=== PATIENT | male | born 1960 | race African-American/Black ===

== ENCOUNTER 2023-06-02 17:57 | Inpatient (IN) | payer OTHER, SELFPAY ==
[2023-06-02] VITALS (9 sets, daily range): BP systolic 105–154; BP diastolic 68–98; BMI 29.9; BMI 29.3
[2023-06-02] MEDS: TYLENOL 1000 MG PO (12:43)
[2023-06-02 13:07] LABS: % Basophils 0.5 % (0-2); % Eosinophils 0.2 % (0-6); % Immature Granulocytes 0.3 % (0-0.5); % Lymphocytes 15.8 % (20.5-51.1); % Monocytes 8.7 % (1.7-9.3); % Neutrophils 74.5 % (42.2-75.2); Absolute Basophils 0.1 10^3/uL (0-0.2); Absolute Immature Granulocytes 0.1 10^3/uL (0-0.05); Absolute Lymphocytes 2.6 10^3/uL (1.2-3.4); Absolute Monocytes 1.4 10^3/uL (0.1-0.6); Hematocrit 47.9 % (39.0-52.0); Hemoglobin 16.7 g/dL (13.0-18.0); Mean Corp Hgb Conc. 34.9 g/dL (33.0-37.0); Mean Platelet Volume 9.1 fL (7.4-10.4); Nucleated Red Blood Cells % 0 % (-); Platelet Count 220 10^3/uL (130-400); Red Blood Cell Count 5.38 10^6/uL (4.70-6.10); Red Cell Dist. Width 13.9 % (11.5-14.5); White Blood Cell Count 16.1 10^3/uL (4.8-10.8)
[2023-06-02 13:19] LABS: ALT (SGPT) 21 U/L (0-50); AST (SGOT) 31 U/L (17-59); Alkaline Phosphatase 82 U/L (38-126); Blood Urea Nitrogen 17 mg/dl (9-20); Calcium 8.7 mg/dl (8.4-10.2); Carbon Dioxide 21 mmol/L (22-30); Chloride 105 mmol/L (98-107); Glucose 123 mg/dl (70-99); Potassium 4.6 mmol/L (3.5-5.1); Sodium 132 mmol/L (135-145); Total Bilirubin 0.8 mg/dl (0.2-1.3); Total Protein 7.7 g/dl (6.3-8.2); eGFR > 60.00
[2023-06-02 13:20] LABS: Lactic Acid 1.2 mmol/L (0.7-2.0)
[2023-06-02 13:21] LABS: COVID-19 Antigen Negative (Negative)
--- NOTE | 2023-06-02 17:00 | EDRN ---
Julián Haro PA in to see pt at this time.
--- NOTE | 2023-06-02 17:01 | ED.GENMED ---
History of Present Illness
General
Chief Complaint: Cold/Flu/URI Symptoms
Time Seen by Provider: 06/02/23 16:15
Travel History
Have you had any contact with someone who has COVID-19?: No
Do you have any symptoms of coronavirus? Fever > 100 degrees, chills, cough, shortness of breath, sore throat, loss of taste or smell, muscle aches, or headache?: No
History of Present Illness
History of Present Illness:
63-year-old male with history of interstitial lung disease presents to the emergency department for evaluation of fever and coughing for the past 3 to 4 days. Cough is productive of yellowish sputum but is on occasion dry. Denies any significant
shortness of breath. Has not taken any antipyretics today. Denies any chest pain does report upper abdominal pain associated with coughing. No ill contacts at home.
Past History
Past History
ED Past Medical History: Asthma, NIDDM and Other (PNA)
ED Past Surgical History: None
Social History
Tobacco: Non-smoker
Alcohol: None
Personal:
Living: with family
Review of Systems
Review of Systems
Allergies reviewed?: Yes
All Other Systems: ROS reviewed and negative except as documented in HPI and ROS
Phy Exam
Physical Exam
Physical Exam:
GEN: Well appearing, NAD, WDWN
Eyes: PERRLA, EOMs intact, no scleral icterus
HENT: NCAT, oral mucosa moist, no JVD, no cervical adenopathy.
Lungs: Normal respiratory effort, interstitial crackles best heard at the bases, no wheezes
Cardiac: Tachycardic, regular
Abdomen: S, NT, ND, NABS, no masses or hepatosplenomegaly
Neuro: AO x 3, no focal deficits to BUE/BLE, normal sensation throughout
MSK: No gross deformity or ecchymosis. No edema. No digital clubbing
Skin: No rashes, petechiae. Normal color, no pallor or jaundice.
Psych: Calm, cooperative, proper hygiene
Course
Orders/Labs/Results
Orders:
Orders
06/02/23 12:40
Electrocardiogram (*1) Urgent
Reason for Study: Bradycardia / Tachycardia
EKG- Treatment ONCE
06/02/23 12:41
Acetaminophen [Tylenol] 1,000 mg .ROUTE .STK-MED ONE
06/02/23 12:43
Acetaminophen [Tylenol] 1,000 mg PO NOW STA
06/02/23 12:55
COVID-19 Antigen Urgent
Source: Nasal Swab
Complete Blood Count/With Diff Urgent
Comprehensive Metabolic Panel Urgent
Lactic Acid Urgent
Blood Culture Urgent
JEREMIE Source: Blood/Venous
Specimen Description:
Influenza A+B Rapid Molecular Urgent
JEREMIE Source: Nasal Swab
Specimen Description:
06/02/23 Dinner
Regular
At Your Request: Full Participation
06/02/23 16:25
CR Chest - 2 Views Urgent
Comment:
Reason For Exam: cough, fever
06/02/23 17:00
CT Chest W/o Iv Contrast Urgent
Comment:
Reason For Exam: fever, cough, hx of ILD
Cefepime HCl [Maxipime] 1,000 mg IV NOW STA
06/02/23 17:03
Doxycycline [Vibramycin] 100 mg PO NOW STA
06/02/23 17:31
Admit/Transfer Patient As Directed
Co-Sign Provider:
Level of Care: Inpatient admission
Assign to:: Medical/Surgical
Physician / Group: melissa
Diagnosis: pneumonia
Reason for Hospitalization: pneumonia
Expected length of stay greater than two midnights?: Yes
ELOS- Estimated Length of Stay in days: 2
I certify the patient meets the requirements for IP care: Yes
06/02/23 17:32
Code Status As Directed
Resuscitation Status: Full Code
06/02/23 17:35
Respiratory Culture/Gram Stain Urgent
JEREMIE Source: Sputum
Specimen Description:
06/02/23 17:41
MethylPREDNISolone PF [Solu-Medrol Pf] 40 mg IV NOW STA
06/02/23 17:50
Procalcitonin Urgent
PCT Algorithmm Indication: Respiratory
06/02/23 17:52
Blood Culture Urgent
JEREMIE Source: Blood/Venous
Specimen Description:
06/02/23 19:44
0.9% Sodium Chloride 1000 ml [Nss] 1,000 ml IV 100 mls/hr
Acetaminophen [Tylenol] 650 mg PO Q4H PRN
Acetaminophen [Tylenol] 650 mg PO Q4HPRN PRN
Dextrose 50%-Water [Dextrose 50% Syringe] 12.5 grams IV [id number] PRN
Glucagon [GlucaGen] 1 mg IM PRN PRN
06/02/23 19:44
Activity As Directed
Activity Level: As Tolerated
Bedside Glucose Monitoring As Directed
Frequency: AC&HS
Comment: Change to q6h if pt on TPN, tube feeding or not eating
Vital Signs As Directed
Frequency: Per unit guidelines
DX Deep Vein Thrombosis Video Routine
06/02/23 19:57
Guaifenesin Solution [Robitussin] 200 mg PO Q4H PRN
06/02/23 20:00
Azithromycin 500 mg/250 ml [Zithromax Infusion] 500 mg in 250 ml IV Q24H
Heparin 5,000 units SC Q12
Ipratropium/Albuterol Sulfate [Duoneb] 3 ml INH R QID
METFORMIN HCl [Glucophage] 500 mg PO BID
06/03/23 06:00
Complete Blood Count/With Diff IN AM
Comprehensive Metabolic Panel IN AM
Glycohemoglobin (HgbA1c) IN AM
Dexamethasone Sod Phosphate [Decadron] 4 mg IV Q12H
06/03/23 07:30
Insulin Aspart Corrective Low [Novolog Flexpen-Low Resistance] See Protocol SC AC
06/03/23 08:00
Ascorbic Acid [Vitamin C] 500 mg PO DAILY
CefTRIAXone [Rocephin] 1,000 mg IV Q24H
Abnormal Lab Results
06/02/23 06/02/23
12:55 17:50
WBC 16.1 H 10^3/uL
(4.8-10.8)
Abs Immat Gran (auto) 0.1 H 10^3/uL
(0-0.05)
Absolute Neuts (auto) 12.0 H 10^3/uL
(1.4-6.5)
Absolute Monos (auto) 1.4 H 10^3/uL
(0.1-0.6)
Lymphocytes % 15.8 L %
(20.5-51.1)
Sodium 132 L mmol/L
(135-145)
Carbon Dioxide 21 L mmol/L
(22-30)
Glucose 123 H mg/dl
(70-99)
Procalcitonin 0.28 H ng/ml
(0.0-0.25)
06/02/23 12:55
06/02/23 12:55
Vital Signs
Initial and Last Documented VS:
Initial Vital Signs
Temp Pulse Resp BP Pulse Ox
102.1 F H 130 16 140/98 95
06/02/23 12:37 06/02/23 12:37 06/02/23 12:37 06/02/23 12:37 06/02/23 12:37
Last Documented Vital Signs
Temp Pulse Resp BP Pulse Ox
100.3 F 115 18 127/77 94
06/02/23 20:15 06/02/23 20:15 06/02/23 20:15 06/02/23 20:15 06/02/23 20:15
MDM/Problems Addressed
MDM/Problems Addressed:
As he is tachycardic, coupled with new PNA superimposed on ILD, he is high risk for complications. Leukocytosis and fever meet sepsis criteria. Will admit for IV abx
*Critical Care Note
Total Time (30-74mins, 75-104mins- exclusive of procedures): Not Applicable
ED Attending Note
-
Portions of this chart may have been created with voice recognition software.� Occasional wrong word or��sound alike� substitutions may have occurred due to the inherent limitations of voice recognition software.
Discharge Plan
Departure
Patient Disposition: Admit
Date of Disposition: 06/02/23
Time of Disposition: 17:15
Presentation/result/management discussed w/ accepting MD/DO: Hospitalist
Discharge Problem:
Community acquired pneumonia, Interstitial lung disease
Interventions
Interventions:
*Risk Screen - Suicide Last Done: 06/02/23 16:32
*General Assessment Last Done: 06/02/23 16:32
*Neglect/Abuse Screening Last Done: 06/02/23 16:32
ED- Fall Risk Assessment Last Done: 06/02/23 16:32
*ED COVID-19 Vaccine History Last Done: 06/02/23 12:37
*Nursing Disposition Last Done: 06/02/23 19:57
ED- Pulmonary Assessment Last Done: 06/02/23 16:35
Discharge Date and Time
Discharge Date/Time: 06/02/23 19:58
--- NOTE | 2023-06-02 17:39 | HPS.HSE ---
Family Physician
-
Family Physician: Matheus Ambrocio
Chief Complaint
-
cough, fever
History of Present Illness
63-year-old male with past medical history of interstitial lung disease not on home oxygen, diabetes presenting with fever and cough for the past 3 days. Cough is productive of yellow sputum and occasionally dry. He denies any significant
shortness of breath. Denies any chest pain but does have some upper abdominal pain associated with coughing which is improved. He denies any sore throat. He also had pain across his lower back which started 3 days ago worse with movement. His
grandson had allergies.
Denies smoking or alcohol.
Medical History
Past Medical History
Past Medical History: Reports Other ( interstitial lung disease not on home oxygen, diabetes)
Past Surgical History: Reports None
Social History
Tobacco: Non-smoker
Alcohol: None
Drug: None
Family History
Family History: Not pertinent
Allergies / Home Medications
Allergies reflects when Allergies were last updated in [employer].
Home Medications with original date entered in [employer]
Allergy/Medication List:
Allergies
Allergy/AdvReac Type Severity Reaction Status Date / Time
No Known Allergies Allergy Verified 06/02/23 12:39
Home Medications
acetaminophen 325 mg tablet (Tylenol) 650 mg PO Q4H PRN mild pain 06/02/23
ascorbic acid (vitamin C) 500 mg tablet (Vitamin C) 500 mg PO DAILY 06/02/23
guaifenesin 200 mg/5 mL oral liquid 200 mg PO Q4H PRN cough 06/02/23
metformin 500 mg tablet 500 mg PO BID 06/02/23
Review of Systems
-
History Source: Patient
A 12 point ROS was completed and negative except as noted: Yes
Constitutional: Reports No Symptoms
EENT: Reports No Symptoms
Respiratory: Reports See HPI
Cardiac: Reports No Symptoms
Abdomen/GI: Reports No Symptoms
: Reports No Symptoms
Musculoskeletal: Reports No Symptoms
Skin: Reports No Symptoms
Neurological: Reports No Symptoms
Endocrine: Reports No Symptoms
Hematologic/Lymphatic: Reports No Symptoms
Psych: Reports No Symptoms
Physical Exam
Vital Signs
Vital Signs
Temp Pulse Resp BP Pulse Ox
102.1 F H 111 37 142/72 92
06/02/23 12:37 06/02/23 17:00 06/02/23 17:00 06/02/23 17:00 06/02/23 17:00
Physical Exam
General: Well Developed, Well Nourished and No Apparent Distress
HEENT: NormoCephalic, Moist mucous membranes and Atraumatic
Respiratory: Wheezes and Rales
Cardiac: S1/S2 and Regular Rhythm; No Murmur or Rub
GI: Soft, Non Tender, Non Distended and Normal Bowel Sounds; No Organomegaly
Rectal: Deferred by Provider
Musculoskeletal: No Clubbing, No Cyanosis and No Edema
Skin: No Rash
Neuro: Nonfocal/grossly intact
Laboratory Results
-
06/02/23 12:55
06/02/23 12:55
Laboratory Results
Lactic Acid 1.2 mmol/L (0.7-2.0) 06/02/23 12:55
Total Bilirubin 0.8 mg/dl (0.2-1.3) 06/02/23 12:55
AST 31 U/L (17-59) 06/02/23 12:55
ALT 21 U/L (0-50) 06/02/23 12:55
Alkaline Phosphatase 82 U/L (38-126) 06/02/23 12:55
Data Reviewed
-
Lab Data: Labs Reviewed by me
Old Records: Reviewed
Impression/Plan
-
IMPRESSION:
PLAN:
# Sepsis (fever, leukocytosis) secondary to community-acquired pneumonia
# History of interstitial lung disease
-Chest x-ray shows slight increase in opacity left lung base superimposed on severe tissue fibrosis consistent with usual interstitial pneumonitis pattern
-COVID-negative, influenza negative
-CT chest pending
-Check sputum culture
-Check blood cultures
-IV fluids
-Ceftriaxone/azithromycin
-Dexamethasone 4q12
-DuoNebs every 6 hours
-Mucinex
# Lower back pain likely muscle strain secondary to COVID
-Tylenol
# Abdominal pain likely secondary to COVID
-Now resolved
Type 2 diabetes
-Continue metformin
-Insulin sliding scale
Full code
DVT prophylaxis�heparin
Regular diet
[2023-06-02] MEDS: SOLU-MEDROL PF 40 MG IV (17:56)
[2023-06-02] MEDS: VIBRAMYCIN 100 MG PO (17:57)
[2023-06-02] MEDS: MAXIPIME 1000 MG IV (17:57)
--- NOTE | 2023-06-02 18:16 | EDRN ---
Pt voided in BR at this time.
[2023-06-02 18:25] LABS: Procalcitonin 0.28 ng/ml (0.0-0.25)
--- NOTE | 2023-06-02 19:07 | EDRN ---
Pt placed on oxygen at 2lpm for low POX of 88-92% on room air and 94% on oxygen at 2lpm via NC. Dr. Ramires was TT about placing pt on oxygen.
[2023-06-02] MEDS: DUONEB 3 ML INH (20:03)
[2023-06-02] MEDS: NSS 1000 IV (20:44)
[2023-06-02] MEDS: HEPARIN 5000 UNITS SC (20:44)
[2023-06-02] MEDS: GLUCOPHAGE 500 MG PO (20:44)
[2023-06-02] MEDS: TYLENOL 650 MG PO (20:44)
--- NOTE | 2023-06-02 20:51 | PTCARENOTE ---
pt arrived from ed, walked in on 2 L NC, VSS, tele placed, aaox3, see MAR and assessment for further details. call mcallister within reach.
[2023-06-02] MEDS: ZITHROMAX INFUSION 250 IV (21:28)
[2023-06-02 21:35] LABS: Glucose - Point of Care 137 mg/dl (70-99)
[2023-06-03] MEDS: DECADRON 4 MG IV ×2 (05:12→17:57)
[2023-06-03 06:05] LABS: % Basophils 0.2 % (0-2); % Immature Granulocytes 0.3 % (0-0.5); % Lymphocytes 11.8 % (20.5-51.1); % Neutrophils 83.7 % (42.2-75.2); Absolute Immature Granulocytes 0.1 10^3/uL (0-0.05); Absolute Lymphocytes 1.7 10^3/uL (1.2-3.4); Absolute Monocytes 0.6 10^3/uL (0.1-0.6); Absolute Neutrophils 12.2 10^3/uL (1.4-6.5); Hematocrit 47.2 % (39.0-52.0); Hemoglobin 16.1 g/dL (13.0-18.0); Mean Corp Hgb Conc. 34.1 g/dL (33.0-37.0); Mean Corpuscular Volume 90.9 fL (80.0-94.0); Mean Platelet Volume 9.8 fL (7.4-10.4); Nucleated Red Blood Cells % 0 % (-); Platelet Count 226 10^3/uL (130-400); Red Blood Cell Count 5.19 10^6/uL (4.70-6.10); Red Cell Dist. Width 13.7 % (11.5-14.5); White Blood Cell Count 14.6 10^3/uL (4.8-10.8)
[2023-06-03 06:32] LABS: ALT (SGPT) 18 U/L (0-50); AST (SGOT) 26 U/L (17-59); Albumin 3.3 g/dl (3.5-5.0); Alkaline Phosphatase 79 U/L (38-126); Blood Urea Nitrogen 16 mg/dl (9-20); Calcium 8.5 mg/dl (8.4-10.2); Carbon Dioxide 24 mmol/L (22-30); Chloride 107 mmol/L (98-107); Estimated Creatinine Clearance 112 ml/min; Glucose 135 mg/dl (70-99); Potassium 4.5 mmol/L (3.5-5.1); Sodium 134 mmol/L (135-145); Total Bilirubin 0.8 mg/dl (0.2-1.3); Total Protein 6.8 g/dl (6.3-8.2); eGFR > 60.00
[2023-06-03 07:00] VITALS: BP 131/89
[2023-06-03] MEDS: DUONEB 3 ML INH ×4 (07:11→20:01)
[2023-06-03 07:22] LABS: Hepatitis C Antibody Negative (Negative)
[2023-06-03] MEDS: NSS 1000 IV ×2 (08:09→17:56)
[2023-06-03 08:45] LABS: Glycohemoglobin (HgbA1c) 6.2 % (4.0-5.6)
[2023-06-03] MEDS: GLUCOPHAGE 500 MG PO ×2 (09:07→17:57)
[2023-06-03] MEDS: VITAMIN C 500 MG PO (09:07)
[2023-06-03] MEDS: NOVOLOG FLEXPEN-LOW RESISTANCE SC ×2 (09:07→16:34)
[2023-06-03] MEDS: ROCEPHIN 1000 MG IV (09:07)
[2023-06-03] MEDS: STERILE WATER FOR INJECTION 10 ML IV (09:08)
[2023-06-03] MEDS: HEPARIN 5000 UNITS SC ×2 (09:08→21:38)
--- NOTE | 2023-06-03 09:09 | W.PN.HOSP.TC ---
Today's Communication/Plan
-
Continue present course of IV steroids
IV antibiotics
Oxygen titrated to need and try and wean
DuoNebs every 6 with expectorant
Encourage secretions management with incentive spirometry and Acapella
Assessment / Plan
Assessment / Plan
63-year-old male with past medical history of interstitial lung disease not on home oxygen, diabetes presenting with fever and cough for the past 3 days.� Cough is productive of yellow sputum and occasionally dry.� He denies any significant
shortness of breath.� Denies any chest pain but does have some upper abdominal pain associated with coughing which is improved.� He denies any sore throat.� He also had pain across his lower back which started 3 days ago worse with movement.� His
grandson had allergies. Similar outbreak diagnosed with pulmonary fibrosis back in 2021 treated with IV steroids and antibiotics with improvement. He does not follow with pulmonary due to cost concerns.
Denies smoking or alcohol.
# Sepsis (fever, leukocytosis) secondary to community-acquired pneumonia
# History of interstitial lung disease
-Chest x-ray shows slight increase in opacity left lung base superimposed on severe tissue fibrosis consistent with usual interstitial pneumonitis pattern
-COVID-negative, influenza negative
-CT chest showed possible progression and honeycombing and bronchiectasis left lower lobe and lingula with possible superimposed pneumonia
-Check sputum culture
-Check blood cultures
-IV fluids
-Ceftriaxone/azithromycin
-Dexamethasone 4q12 continue for another 24 hours
-DuoNebs every 6 hours
-Mucinex
# Lower back pain likely muscle strain secondary to COVID
-Tylenol
# Abdominal pain likely secondary to COVID
-Now resolved
Type 2 diabetes
-Continue metformin
-Insulin sliding scale
Full code
DVT prophylaxis�heparin
Regular diet
Anticipated Discharge: 24 - 48 hours
Subjective/Interval History
-
Date of Service: June 03, 2023
states that he is feeling somewhat better and breathing easier he is not on oxygen at home he is on 2 L here since arrival.
Objective Data
-
Labs:
Laboratory Results
06/03/23
05:13
WBC 14.6 H
Hgb 16.1
Hct 47.2
Plt Count 226
Sodium 134 L
Potassium 4.5
Chloride 107
Carbon Dioxide 24
BUN 16
Creatinine 0.6 L
Glucose 135 H
Calcium 8.5
Total Bilirubin 0.8
AST 26
ALT 18
Alkaline Phosphatase 79
Vital Signs:
Vital Signs
Temp Pulse Resp BP Pulse Ox
97.4 F 95 16 131/89 98
06/03/23 07:00 06/03/23 07:15 06/03/23 07:15 06/03/23 07:00 06/03/23 07:15
Review of Systems
-
History Source: Patient
Constitutional: Reports No Symptoms; Denies Fever
EENT: Reports No Symptoms Reported
Respiratory: Reports Cough and Trouble Breathing
Physical Exam
-
General: Well Developed
HEENT: Normocephalic
Respiratory: Rales and Crackles
Cardiac: Regular Rhythm
GI: Soft, Nontender, Nondistended and Normal Bowel Sounds
Neuro: Awake and Alert
Psych: Calm
Data Reviewed
-
Total Time Spent with Patient (in minutes): 56
CT Scan: Report Reviewed by me (Significant honeycombing that may have progressed from last study especially in the left lower lobe/with bronchiectasis involving the lingula and left lower lobe)
Labs: Labs Reviewed by me
[2023-06-03] MEDS: GLUCOPHAGE PO (11:38)
[2023-06-03 12:49] LABS: Glucose - Point of Care 179 mg/dl (70-99)
[2023-06-03 15:00] VITALS: BP 132/81
[2023-06-03 16:52] LABS: Glucose - Point of Care 198 mg/dl (70-99)
--- NOTE | 2023-06-03 16:53 | CM ---
Alert awake oriented patient who lives with his Dewey who lives in a 2 story home with 2 step to enter and 10 steps to bed and bathroom. He is independent in driving and in all activities of daily living.He was offered VN he declined
need.Pt has no insurance . [facility]. Pt uses Mireya Pastrana as PCP.[facility].
No VN hx / No SNF history
Pharmacy [facility]
PCP DR Cristóbal Pastrana
PLAN Home declined VN
[2023-06-03] MEDS: NOVOLOG FLEXPEN-LOW RESISTANCE 1 UNITS SC (17:59)
[2023-06-03] MEDS: ZITHROMAX INFUSION 250 IV (21:38)
[2023-06-03 22:18] LABS: Glucose - Point of Care 175 mg/dl (70-99)
[2023-06-03 23:00] VITALS: BP 134/84
[2023-06-04] MEDS: NSS 1000 IV (03:29)
[2023-06-04] MEDS: DECADRON 4 MG IV (05:30)
[2023-06-04 07:00] VITALS: BP 130/87
[2023-06-04] MEDS: DUONEB 3 ML INH ×4 (07:36→20:45)
[2023-06-04] MEDS: STERILE WATER FOR INJECTION 10 ML IV (08:04)
[2023-06-04] MEDS: ROCEPHIN 1000 MG IV (08:04)
[2023-06-04] MEDS: GLUCOPHAGE 500 MG PO ×2 (08:04→17:24)
[2023-06-04] MEDS: HEPARIN 5000 UNITS SC ×2 (08:05→21:52)
[2023-06-04] MEDS: VITAMIN C 500 MG PO (08:05)
[2023-06-04 08:11] LABS: Hematocrit 42.7 % (39.0-52.0); Hemoglobin 14.6 g/dL (13.0-18.0); Mean Corp Hgb Conc. 34.2 g/dL (33.0-37.0); Mean Corpuscular Hgb 30.8 pg (27.0-31.0); Mean Corpuscular Volume 90.1 fL (80.0-94.0); Mean Platelet Volume 9.9 fL (7.4-10.4); Platelet Count 251 10^3/uL (130-400); Red Blood Cell Count 4.74 10^6/uL (4.70-6.10); Red Cell Dist. Width 13.7 % (11.5-14.5)
[2023-06-04 08:21] LABS: Glucose - Point of Care 111 mg/dl (70-99)
[2023-06-04] MEDS: NOVOLOG FLEXPEN-LOW RESISTANCE SC (08:22)
[2023-06-04 08:35] LABS: Blood Urea Nitrogen 15 mg/dl (9-20); Calcium 8.4 mg/dl (8.4-10.2); Carbon Dioxide 23 mmol/L (22-30); Chloride 106 mmol/L (98-107); Estimated Creatinine Clearance 112 ml/min; Glucose 119 mg/dl (70-99); Potassium 4.2 mmol/L (3.5-5.1); Sodium 136 mmol/L (135-145); eGFR > 60.00
--- NOTE | 2023-06-04 10:13 | W.PN.HOSP.TC ---
Today's Communication/Plan
-
Transition to oral prednisone today
Continue course of antibiotics
Proposed discharge for tomorrow
Now off oxygen
Assessment / Plan
Assessment / Plan
63-year-old male with past medical history of interstitial lung disease not on home oxygen, diabetes presenting with fever and cough for the past 3 days.� Cough is productive of yellow sputum and occasionally dry.� He denies any significant
shortness of breath.� Denies any chest pain but does have some upper abdominal pain associated with coughing which is improved.� He denies any sore throat.� He also had pain across his lower back which started 3 days ago worse with movement.� His
grandson had allergies. Similar outbreak diagnosed with pulmonary fibrosis back in 2021 treated with IV steroids and antibiotics with improvement. He does not follow with pulmonary due to cost concerns.
Denies smoking or alcohol.
# Sepsis (fever, leukocytosis) secondary to community-acquired pneumonia
# History of interstitial lung disease
-Chest x-ray shows slight increase in opacity left lung base superimposed on severe tissue fibrosis consistent with usual interstitial pneumonitis pattern
-COVID-negative, influenza negative
-CT chest showed possible progression and honeycombing and bronchiectasis left lower lobe and lingula with possible superimposed pneumonia
-Check sputum culture
-Check blood cultures
-IV fluids
-Ceftriaxone/azithromycin
-Dexamethasone 4q12 continue for another 24 hours/transition to oral prednisone today
-DuoNebs every 6 hours
-Mucinex
# Lower back pain likely muscle strain secondary to COVID
-Tylenol
# Abdominal pain likely secondary to COVID
-Now resolved
Type 2 diabetes
-Continue metformin
-Insulin sliding scale
Full code
DVT prophylaxis�heparin
Regular diet
Anticipated Discharge: Within 24 hours
Subjective/Interval History
-
Date of Service: June 04, 2023
Patient breathing significantly better now off oxygen less cough less congestion
Objective Data
-
Labs:
Laboratory Results
06/04/23
06:32
WBC 15.0 H
Hgb 14.6
Hct 42.7
Plt Count 251
Sodium 136
Potassium 4.2
Chloride 106
Carbon Dioxide 23
BUN 15
Creatinine 0.5 L
Glucose 119 H
Calcium 8.4
Vital Signs:
Vital Signs
Temp Pulse Resp BP Pulse Ox
98.2 F 102 18 130/87 96
06/04/23 07:00 06/04/23 07:39 06/04/23 07:39 06/04/23 07:00 06/04/23 07:39
I&O
06/03/23 06/04/23 06/05/23
06:59 06:59 07:59
Intake Total 1950 / 1949
Output Total 2099
Balance -150 / -150
Review of Systems
-
History Source: Patient
Constitutional: Reports No Symptoms
EENT: Reports No Symptoms Reported
Respiratory: Reports Cough
Abdomen/GI: Reports No Symptoms
Physical Exam
-
General: Well Developed
HEENT: Normocephalic
Respiratory: Crackles (Left more than right)
Cardiac: Regular Rhythm
GI: Soft and Nontender
Skin: Warm
Neuro: Awake, Alert and Oriented
Psych: Calm
Data Reviewed
-
Total Time Spent with Patient (in minutes): 45
Diagnostic Radiology: Report Reviewed by me
Labs: Labs Reviewed by me (Persisting leukocytosis presently in relation to steroid)
[2023-06-04 12:23] LABS: Glucose - Point of Care 162 mg/dl (70-99)
[2023-06-04] MEDS: NOVOLOG FLEXPEN-LOW RESISTANCE 1 UNITS SC ×2 (12:27→17:23)
[2023-06-04] MEDS: DELTASONE 40 MG PO (12:28)
[2023-06-04 15:00] VITALS: BP 135/85
[2023-06-04 16:48] LABS: Glucose - Point of Care 177 mg/dl (70-99)
[2023-06-04] MEDS: ROBITUSSIN 200 MG PO (17:28)
[2023-06-04] MEDS: ZITHROMAX INFUSION 250 IV (21:52)
[2023-06-04 21:56] LABS: Glucose - Point of Care 178 mg/dl (70-99)
[2023-06-04 23:00] VITALS: BP 115/65
[2023-06-05 07:00] VITALS: BP 132/91
[2023-06-05] MEDS: DUONEB 3 ML INH (08:06)
[2023-06-05] MEDS: ROCEPHIN 1000 MG IV (08:09)
[2023-06-05] MEDS: DELTASONE 40 MG PO (08:09)
[2023-06-05] MEDS: GLUCOPHAGE 500 MG PO (08:10)
[2023-06-05] MEDS: STERILE WATER FOR INJECTION 10 ML IV (08:10)
[2023-06-05] MEDS: HEPARIN 5000 UNITS SC (08:10)
[2023-06-05] MEDS: NOVOLOG FLEXPEN-LOW RESISTANCE SC (08:20)
[2023-06-05 08:21] LABS: Glucose - Point of Care 86 mg/dl (70-99)
--- NOTE | 2023-06-05 08:30 | W.DS.TRANS ---
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
-
Discharge Instructions:
Discharge Diagnosis/Procedures Sepsis secondary to community-acquired pneumonia
Interstitial pulm fibrosis
Diet As tolerated,Diabetic, Carb Controlled
Activity No restrictions
Driving Restrictions As prior to admission
Instructions:
Stand-Alone Forms:
Changes to Home Medications: Yes
Discharge Medications:
DC Medications w/original date entered in [employer]
acetaminophen 325 mg tablet (Tylenol) 650 mg PO Q4H PRN mild pain 06/02/23
ascorbic acid (vitamin C) 500 mg tablet (Vitamin C) 500 mg PO DAILY Supplement 06/02/23
guaifenesin 200 mg/5 mL oral liquid 200 mg PO Q4H PRN cough 06/02/23
metformin 500 mg tablet 500 mg PO BID@0800,1700 Diabetes 06/02/23
azithromycin 500 mg tablet (Zithromax) 500 mg PO DAILY 5 days #5 tabs 06/05/23
cefdinir 300 mg capsule 300 mg PO BID #14 caps 06/05/23
prednisone 10 mg tablet See Rx Instructions .Route .COMPLEX Anti-inflammatory #30 tabs 06/05/23
Home Medication Changes
azithromycin 500 mg tablet (Zithromax) 500 mg PO DAILY 5 days #5 tabs 06/05/23
cefdinir 300 mg capsule 300 mg PO BID #14 caps 06/05/23
prednisone 10 mg tablet See Rx Instructions .Route .COMPLEX Anti-inflammatory #30 tabs 06/05/23
Pending Results: No
Total time spent discharging patient (in min): 38
[2023-06-05] MEDS: VITAMIN C 500 MG PO (08:39)
--- NOTE | 2023-06-05 10:00 | CM ---
Plan: discharge to home; no needs; will transport home
--- NOTE | 2023-06-05 10:36 | W.DCSUMMARY ---
Discharge Summary
Discharge Data
Date of Admission: 06/02/23
Date of Discharge: 06/05/23
Total time spent discharging patient (in min): 40
-
Pending Results: No
Hospital Course
This is a 63-year-old male with a known past medical history of interstitial lung disease not on home oxygen therapy and also a diabetic presented with a febrile course and cough for the last 3 days prior to presentation. Clinical
presentation at the time of ED evaluation was consistent with underlying sepsis with fever and leukocytosis and secondary to perceived community-acquired pneumonia treated with IV steroids and antibiotic course of ceftriaxone and azithromycin. He
tested COVID-negative and influenza negative.
He responded well to a steroid taper after 24 hours he was also continued on DuoNebs and expectorant therapy. His type 2 diabetes did not result in significant hyperglycemia from steroid management
CT of the chest showed possible progression and honeycombing of the left lower lobe with bronchiectasis in the left lower lobe and lingula with possible superimposed pneumonia.
It was again suggested to him that he should seek pulmonary follow-up as an outpatient but states he cannot afford this
At this point in time the patient is stable for discharge on a steroid taper of prednisone as directed and he will be given a prescription for cefdinir for the next week along with Zithromax for next 5 days.
Discharge Plan
-
Patient Disposition: Home (Routine Discharge)
Discharge Diagnosis/Procedures: Sepsis secondary to community-acquired pneumonia
Interstitial pulm fibrosis
Diet: As tolerated and Diabetic, Carb Controlled
Activity: No restrictions
Driving Restrictions: As prior to admission
Referrals:
Matheus Ambrocio MD [Family Provider] - in less than 1 week
Prescriptions:
New
azithromycin [Zithromax] 500 mg tablet
500 mg PO DAILY 5 Days Qty: 5 0RF
cefdinir 300 mg capsule
300 mg PO BID Qty: 14 0RF
prednisone 10 mg Tablet
See Rx Instructions .ROUTE .COMPLEX Qty: 30 0RF
Rx Instructions:
Take By Mouth:
40 mg daily x3 days, 30 mg daily x3 days,
20 mg daily x3 days, 10 mg daily x3 days.
Continued
metformin 500 mg Tablet
500 mg PO BID@0800,1700
acetaminophen [Tylenol] 325 mg Tablet
650 mg PO Q4H PRN (Reason: mild pain)
ascorbic acid (vitamin C) [Vitamin C] 500 mg Tablet
500 mg PO DAILY
guaifenesin 200 mg/5 mL Liquid
200 mg PO Q4H PRN (Reason: cough)
Discharge Orders:
Discharge Patient (As Directed); Ordered 06/05/23
Ordered By: Hardik Diamond
--- NOTE | 2023-06-05 11:12 | PTCARENOTE ---
Discussed discharge information with Pt and at bedside with second RN that speak Barb[place] fluently. IV access removed. Belongings from room taken with Pt. Transport wheeled Pt to exit. to drive Pt home.
== END 2023-06-05 11:04 | disposition home or self-care (01) | DRG 871 ==
LOC: 3 WEST ACU 17:57
PROVIDERS: Emergency Medicine; Physician Assistant; ADMITTING PHYSICIAN Hospitalist; ATTENDING PHYSICIAN Internal Medicine; EMERGENCY PHYSICIAN Student in an Organized Health Care Education/Training Program; FAMILY PHYSICIAN Family Medicine
DX: A41.89 Other specified sepsis (principal); J18.9 Pneumonia, unspecified organism; J84.10 Pulmonary fibrosis, unspecified; E11.9 Type 2 diabetes mellitus without complications; Z11.52 Encounter for screening for COVID-19
CPT/HCPCS: 71046; 71250; 80048; 80053; 82962; 83036; 83605; 84145; 85025; 85027; 86803; 87040; 87502; 87811; 93005; 94640; 99285

== ENCOUNTER 2023-11-02 12:04 | Emergency (ER) | payer SELFPAY ==
[2023-11-02 12:05] VITALS: BP 150/93
[2023-11-02 12:42] LABS: % Basophils 0.6 % (0-2); % Eosinophils 2.9 % (0-6); % Immature Granulocytes 0.4 % (0-0.5); % Lymphocytes 25.5 % (20.5-51.1); % Monocytes 12.7 % (1.7-9.3); % Neutrophils 57.9 % (42.2-75.2); Absolute Basophils 0.1 10^3/uL (0-0.2); Absolute Eosinophils 0.3 10^3/uL (0-0.7); Absolute Immature Granulocytes 0.1 10^3/uL (0-0.05); Absolute Lymphocytes 2.9 10^3/uL (1.2-3.4); Absolute Monocytes 1.5 10^3/uL (0.1-0.6); Absolute Neutrophils 6.7 10^3/uL (1.4-6.5); Hematocrit 45.9 % (39.0-52.0); Hemoglobin 16.3 g/dL (13.0-18.0); Mean Corp Hgb Conc. 35.5 g/dL (33.0-37.0); Mean Corpuscular Hgb 31.2 pg (27.0-31.0); Mean Corpuscular Volume 87.8 fL (80.0-94.0); Mean Platelet Volume 9.8 fL (7.4-10.4); Nucleated Red Blood Cells % 0 % (-); Platelet Count 239 10^3/uL (130-400); Red Blood Cell Count 5.23 10^6/uL (4.70-6.10); Red Cell Dist. Width 14.3 % (11.5-14.5); White Blood Cell Count 11.5 10^3/uL (4.8-10.8)
[2023-11-02 13:01] LABS: COVID-19 Antigen Negative (Negative)
[2023-11-02 13:12] LABS: ALT (SGPT) 23 U/L (0-50); AST (SGOT) 31 U/L (17-59); Alkaline Phosphatase 75 U/L (38-126); Blood Urea Nitrogen 17 mg/dl (9-20); Calcium 9.3 mg/dl (8.4-10.2); Carbon Dioxide 23 mmol/L (22-30); Chloride 104 mmol/L (98-107); Glucose 93 mg/dl (70-99); Potassium 4.5 mmol/L (3.5-5.1); Sodium 134 mmol/L (135-145); Total Bilirubin 0.7 mg/dl (0.2-1.3); Total Protein 7.2 g/dl (6.3-8.2); eGFR > 60.00
[2023-11-02 13:21] LABS: Troponin I < 0.012 ng/ml
--- NOTE | 2023-11-02 13:41 | ED.GENMED ---
History of Present Illness
General
Chief Complaint: Breathing Problem
Source: patient
Exam Limitations: none
Time Seen by Provider: 11/02/23 12:32
Nursing documentation reviewed up to this point in time: agreed with
History of Present Illness
History of Present Illness:
pt is a 63 y/o M with h/o NIDDM, asthma
here with cough x 3 weeks
fever onset last night, took tylenol but nothing today
has had some back pain with cough
sometimes cough is productive of sputum, which is clear
he has been using his inhaler but not really having relief of symptoms
felt more short of breath last night with mroe back pain so that prompted his visit today
pt is not chronically on steroids
uninsured
no follow up
never saw pulm after admissino in 05/2023 for pna and new dx of intersitital lung diease
Past History
Past History
ED Past Medical History: Asthma, NIDDM and Other (PNA)
ED Past Surgical History: None
Social History
Tobacco: Non-smoker
Alcohol: None
Personal:
Living: with family
Review of Systems
Review of Systems
Allergies reviewed?: Yes
All Other Systems: Not applicable
Phy Exam
Physical Exam
Physical Exam:
GENERAL: Alert , in no apparent distress
EYE: pupils equal and reactive
NECK: Supple
ENT: o/p clr, mmm.
CARDIAC: Regular rate and rhythm .
LUNGS: wheezing end exp, slightly diminished throughuot, minimally tachypneic, speaking full sentences, cough
ABDOMEN: Soft, without focal tenderness, no r/g, no cvat, normal bowel sounds
NEUROLOGICAL: Alert and oriented, no focal neuro deficits
SKIN: Warm and dry, skin intact.
MUSCULOSKELETAL: No edema, well perfused. neg yonis's sign
PSYCH: Normal and appropriate interaction.
Scores
Heart Failure Risk
Heart Failure Risk Score: Not Applicable
Course
Orders/Labs/Results
Orders:
Orders
11/02/23 12:08
Electrocardiogram (*1) Urgent
Reason for Study: Shortness of Breath
EKG- Treatment ONCE
Chest [CR Chest - 2 Views ] Urgent
Comment:
Reason For Exam: SOB
11/02/23 12:15
COVID-19 Antigen Urgent
Source: Nasal Swab
Complete Blood Count/With Diff Urgent
Comprehensive Metabolic Panel Urgent
NT-proBNP Urgent
Comment: ADD ON
Troponin I Urgent
11/02/23 13:13
Ipratropium/Albuterol Sulfate [Duoneb] 3 ml INH R NOW ONE
MethylPREDNISolone PF [Solu-Medrol Pf] 60 mg IV NOW STA
11/02/23 13:18
Add On- LAB Urgent
Tests Added?: bnp
11/02/23 15:00
Ipratropium/Albuterol Sulfate [Duoneb] 3 ml INH R NOW ONE
11/02/23 15:52
D-Dimer Urgent
11/02/23 15:53
Amoxicillin 875 mg/Clav 125 mg [Augmentin 875 mg/125 mg] 1 tablet PO NOW STA
Azithromycin [Zithromax] 500 mg PO NOW STA
Abnormal Lab Results
11/02/23 11/02/23
12:15 16:53
WBC 11.5 H 10^3/uL
(4.8-10.8)
MCH 31.2 H pg
(27.0-31.0)
Abs Immat Gran (auto) 0.1 H 10^3/uL
(0-0.05)
Absolute Neuts (auto) 6.7 H 10^3/uL
(1.4-6.5)
Absolute Monos (auto) 1.5 H 10^3/uL
(0.1-0.6)
Monocytes % 12.7 H %
(1.7-9.3)
Sodium 134 L mmol/L
(135-145)
POC Glucose 183 H mg/dl
(70-99)
11/02/23 12:15
11/02/23 12:15
Vital Signs
Initial and Last Documented VS:
Initial Vital Signs
Temp Pulse Resp BP Pulse Ox
99.3 F 110 20 150/93 94
11/02/23 12:05 11/02/23 12:05 11/02/23 12:05 11/02/23 12:05 11/02/23 12:05
Last Documented Vital Signs
Temp Pulse Resp BP Pulse Ox
99.3 F 95 16 124/86 96
11/02/23 12:05 11/02/23 15:20 11/02/23 15:20 11/02/23 15:20 11/02/23 15:20
MDM/Problems Addressed
Differential Diagnosis Includes:
asthma,, bronchitis, pna, PE, intersitial lung idseasse
MDM/Problems Addressed:
63 y/o M
h/o ILD
no follow up becau no insurance
3 weeks cough, fever last night, painful breathing back pain, more sob
using inhaler which helps minmially
no chest pain
nontoxic appearing
but lungs insp/exp wheezing, no tachypnea
borderline febrile
no hypoxia
ekg sinus tach
labs are reassruing tro and bnp neg
d dimer neg (ordered ct scan originally but pt improved greatly and d/w ed attending, felt that he was low risk enough to avoid scan and dimer instead)
reassessed by me after 2 duo and steroids
lungs clear
will cover with abx, atelectasis vs early pna
steroids
*Critical Care Note
Total Time (30-74mins, 75-104mins- exclusive of procedures): Not Applicable
ED Attending Note
-
Portions of this chart may have been created with voice recognition software.� Occasional wrong word or��sound alike� substitutions may have occurred due to the inherent limitations of voice recognition software.
Discharge Plan
Departure
Patient Disposition: Home (Routine Discharge)
Date of Disposition: 11/02/23
Time of Disposition: 16:36
Patient with high blood pressure during this ER visit?: No
Condition: Fair
Covid-19: Not Applicable
Discharge Problem:
Interstitial lung disease, Bronchitis, Asthma
Instructions: Interstitial lung disease, Bronchitis, Adult ED
Prescriptions:
New
prednisone 20 mg tablet
40 mg PO DAILY Qty: 10 0RF
albuterol sulfate 90 mcg/actuation HFA aerosol inhaler
2 puff inhalation QID PRN (Reason: shortness of breath or wheezing) Qty: 6.7 0RF
amoxicillin-pot clavulanate 875-125 mg tablet
1 tab PO BID Qty: 20 0RF
azithromycin [Zithromax] 250 mg tablet
250 mg PO DAILY 4 Days Qty: 4 0RF
No Action
metformin 500 mg Tablet
500 mg PO BID@0800,1700
acetaminophen [Tylenol] 325 mg Tablet
650 mg PO Q4H PRN (Reason: mild pain)
ascorbic acid (vitamin C) [Vitamin C] 500 mg Tablet
500 mg PO DAILY
guaifenesin 200 mg/5 mL Liquid
200 mg PO Q4H PRN (Reason: cough)
azithromycin [Zithromax] 500 mg tablet
500 mg PO DAILY 5 Days Qty: 5 0RF
cefdinir 300 mg capsule
300 mg PO BID Qty: 14 0RF
prednisone 10 mg Tablet
See Rx Instructions .ROUTE .COMPLEX Qty: 30 0RF
Rx Instructions:
Take By Mouth:
40 mg daily x3 days, 30 mg daily x3 days,
20 mg daily x3 days, 10 mg daily x3 days.
Referrals:
[facility] [Outside] - Follow up in 1 week
Ham Damian MD [Active] - Follow up in 5-7 days (PULM)
Activity Restrictions/Additional Instructions:
YOU PROBABLY HAVE BRONCHITIS
WE ARE TREATING YOU FOR PNEUMONIA WITH 2 ANTIBIOTICS
AUGMENTIN TWICE A DAY FOR 10 DAYS AND ZITHROMAX ONCE A DAY FOR 4 DAYS STARTING TOMORROW
USE THE PREDNISONE ONCE A DAY STARTING TOMROROW
USE YOUR INHALER 2 PUFFS EVERY 4 HOURS NEEDED
RETURN FOR ANY CONCERNS: HIGH FEVER, WORSE BACK PAIN/SHORTNESS OF BREATH, CHEST PAIN OR ANY CONCERNS.
Interventions
Interventions:
*Risk Screen - Suicide Last Done: 11/02/23 12:07
*General Assessment Last Done: 11/02/23 12:07
*Neglect/Abuse Screening Last Done: 11/02/23 12:07
ED- Fall Risk Assessment Last Done: 11/02/23 14:07
*ED COVID-19 Vaccine History Last Done: 11/02/23 14:07
*Nursing Disposition Last Done: 11/02/23 17:03
ED- Cardiac Assessment Last Done: 11/02/23 14:07
ED- Pulmonary Assessment Last Done: 11/02/23 14:07
Discharge Date and Time
Discharge Date/Time: 11/02/23 17:06
Print Language: GREENLANDIC
[2023-11-02] MEDS: SOLU-MEDROL PF 60 MG IV (14:00)
[2023-11-02 14:01] LABS: NT-proBNP 159 pg/ml
[2023-11-02] MEDS: DUONEB 3 ML INH ×2 (14:01→15:18)
[2023-11-02 15:20] VITALS: BP 124/86
[2023-11-02 16:16] LABS: D-Dimer 0.38 ug/mlFEU (0.00-0.50)
[2023-11-02 16:54] LABS: Glucose - Point of Care 183 mg/dl (70-99)
[2023-11-02] MEDS: AUGMENTIN 875 MG/125 MG 1 TABLET PO (16:55)
[2023-11-02] MEDS: ZITHROMAX 500 MG PO (16:55)
== END 2023-11-02 17:06 | disposition home or self-care (01) ==
LOC: EMR 12:04
PROVIDERS: Physician Assistant; Student in an Organized Health Care Education/Training Program; EMERGENCY PHYSICIAN Emergency Medicine
DX: J84.9 Interstitial pulmonary disease, unspecified (principal); J20.9 Acute bronchitis, unspecified; J45.901 Unspecified asthma with (acute) exacerbation; Z11.52 Encounter for screening for COVID-19; E11.9 Type 2 diabetes mellitus without complications; Z87.01 Personal history of pneumonia (recurrent)
CPT/HCPCS: 99284; 96374; 94640 ×2; 71046; 80053; 82962; 83880; 84484; 85025; 85379; 87811; 93005

== ENCOUNTER 2023-12-20 12:51 | Emergency (ER) | payer SELFPAY ==
[2023-12-20 13:03] VITALS: BP 139/100
--- NOTE | 2023-12-20 14:14 | ED.MUSCINJ ---
HPI-Injury
General
Chief Complaint: Musculo-Skeletal Complaint
Time Seen by Provider: 12/20/23 13:36
History of Present Illness-Injury
Initial Injury comments:
63-year-old male with history of interstitial lung disease presenting to the emergency department for right shoulder pain. Patient reports pain for the past 2 months. Denies known injury, however for the past 3 days feels that is getting worse,
has difficulty with abduction. He has been taking Tylenol for pain. Denies numbness or tingling to the extremity. Denies any swelling to the arm. Denies chest pain or difficulty breathing. Denies additional acute medical complaint
Past History
Past History
ED Past Medical History: Asthma, NIDDM and Other (PNA)
ED Past Surgical History: None
Social History
Tobacco: Non-smoker
Alcohol: None
Personal:
Living: with family
Phy Exam
Physical Exam
Physical Exam:
General: Well-appearing, no clinical signs of dehydration, nontoxic and in no acute distress
HEENT: protecting airway
Neck: appears supple
CV: Normal heart rate
Resp: No accessory muscle use, no increased work of breathing, lungs clear to auscultation bilaterally
Abd: No distention
Extremities: No deformity or swelling to the right upper extremity. Generalized tenderness to the shoulder joint. Range of motion is intact to 90 degrees of abduction, further limited by pain. Distal sensation and pulses intact. No erythema
Neuro: alert, no focal neurologic deficit
: deferred
Rectal: deferred
Psych: Normal affect
Skin: Intact
Injury Course
Orders/Labs/Results
Orders:
Orders
12/20/23 13:07
CR Shoulder - Right Min 2 View Urgent
Reason For Exam: pain
12/20/23 14:13
Sling Right-Treatment ONCE
MDM/Problems Addressed
MDM/Problems Addressed:
63-year-old male presenting for 2 months of right shoulder pain. Vital signs are significant for mild hypertension.
On exam, patient is well-appearing, no acute distress or discomfort. Overall benign examination of the shoulder. No significant deformity or swelling, and no report of direct trauma with lower suspicion for fracture or malalignment. Suspect
rotator cuff injury given limited range of motion with abduction. X-ray obtained, no fracture or dislocation. No neurovascular compromise on exam. No infectious findings. Feel patient can be appropriately managed outpatient, may need MRI
imaging. Will provide orthopedic follow-up. Will provide prescription for ibuprofen as well for pain control. Will provide sling for comfort, however patient cautioned on frozen shoulder syndrome, advised daily range of motion exercises. Return
precautions discussed and patient verbalized understanding
*Critical Care Note
Total Time (30-74mins, 75-104mins- exclusive of procedures): Not Applicable
ED Attending Note
-
Portions of this chart may have been created with voice recognition software.� Occasional wrong word or��sound alike� substitutions may have occurred due to the inherent limitations of voice recognition software.
Discharge Plan
Departure
Patient Disposition: Home (Routine Discharge)
Date of Disposition: 12/20/23
Time of Disposition: 14:11
Patient with high blood pressure during this ER visit?: No
Condition: Good
Discharge Problem:
Pain in right shoulder, Rotator cuff disorder
Instructions: Rotator Cuff Injury (DC), Rotator Cuff Tendinitis Strengthening Exercises, How to Use a Shoulder Sling, Rotator Cuff Tear Exercises
Prescriptions:
New
ibuprofen 600 mg tablet
600 mg PO Q8H PRN (Reason: Pain) Qty: 20 0RF
No Action
metformin 500 mg Tablet
500 mg PO BID@0800,1700
acetaminophen [Tylenol] 325 mg Tablet
650 mg PO Q4H PRN (Reason: mild pain)
ascorbic acid (vitamin C) [Vitamin C] 500 mg Tablet
500 mg PO DAILY
guaifenesin 200 mg/5 mL Liquid
200 mg PO Q4H PRN (Reason: cough)
azithromycin [Zithromax] 500 mg tablet
500 mg PO DAILY 5 Days Qty: 5 0RF
cefdinir 300 mg capsule
300 mg PO BID Qty: 14 0RF
prednisone 10 mg Tablet
See Rx Instructions .ROUTE .COMPLEX Qty: 30 0RF
Rx Instructions:
Take By Mouth:
40 mg daily x3 days, 30 mg daily x3 days,
20 mg daily x3 days, 10 mg daily x3 days.
prednisone 20 mg tablet
40 mg PO DAILY Qty: 10 0RF
albuterol sulfate 90 mcg/actuation HFA aerosol inhaler
2 puff inhalation QID PRN (Reason: shortness of breath or wheezing) Qty: 6.7 0RF
amoxicillin-pot clavulanate 875-125 mg tablet
1 tab PO BID Qty: 20 0RF
azithromycin [Zithromax] 250 mg tablet
250 mg PO DAILY 4 Days Qty: 4 0RF
Referrals:
UNKNOWN - PT DOES,NOT KNOW [Family Provider] -
Dio Bowman MD [Active] -
Activity Restrictions/Additional Instructions:
You were seen in the emergency department for shoulder pain
You were found to have a normal x-ray of your shoulder. You are suspected to have an injury to your rotator cuff. Please follow-up with the orthopedic doctor
Please follow-up closely with your primary care physician.
Return to the emergency department for any worsening of your symptoms including increased pain or numbness or tingling to your, or any development of chest pain, difficulty breathing, abdominal pain with persistent vomiting and inability to tolerate
food or liquid by mouth (concern for dehydration), weakness, headache or confusion, fever greater than 100.4, or any additional symptoms that are concerning to you.
Thank you for choosing [facility].
Interventions
Interventions:
*Risk Screen - Suicide Last Done: 12/20/23 13:03
*General Assessment Last Done: 12/20/23 13:03
*Neglect/Abuse Screening Last Done: 12/20/23 13:03
*ED COVID-19 Vaccine History Last Done: 12/20/23 13:03
ED-Musculoskeletal Assessment Last Done: 12/20/23 13:56
Discharge Date and Time
Print Language: [id number]
[2023-12-20 14:46] LABS: Glucose - Point of Care 67 mg/dl (70-99)
[2023-12-20 14:59] VITALS: BP 137/89
== END 2023-12-20 15:08 | disposition home or self-care (01) ==
LOC: EMR 12:51
PROVIDERS: EMERGENCY PHYSICIAN Student in an Organized Health Care Education/Training Program
DX: S46.001A Unspecified injury of muscle(s) and tendon(s) of the rotator cuff of right shoulder, initial encounter (principal); M25.511 Pain in right shoulder; X58.XXXA Exposure to other specified factors, initial encounter
CPT/HCPCS: 99283; 73030; 82962

== ENCOUNTER 2024-04-10 20:25 | Inpatient (IN) | payer OTHER, SELFPAY ==
[2024-04-10 12:30] VITALS: BP 136/92
[2024-04-10 12:54] LABS: % Basophils 0.7 % (0-2); % Eosinophils 2.9 % (0-6); % Immature Granulocytes 0.3 % (0-0.5); % Lymphocytes 22.8 % (20.5-51.1); % Monocytes 13.4 % (1.7-9.3); % Neutrophils 59.9 % (42.2-75.2); Absolute Basophils 0.1 10^3/uL (0-0.2); Absolute Eosinophils 0.3 10^3/uL (0-0.7); Absolute Lymphocytes 2.4 10^3/uL (1.2-3.4); Absolute Monocytes 1.4 10^3/uL (0.1-0.6); Absolute Neutrophils 6.4 10^3/uL (1.4-6.5); Hematocrit 49.7 % (39.0-52.0); Hemoglobin 16.8 g/dL (13.0-18.0); Mean Corp Hgb Conc. 33.8 g/dL (33.0-37.0); Mean Corpuscular Hgb 30.6 pg (27.0-31.0); Mean Corpuscular Volume 90.5 fL (80.0-94.0); Mean Platelet Volume 9.2 fL (7.4-10.4); Nucleated Red Blood Cells % 0 % (-); Platelet Count 250 10^3/uL (130-400); Red Blood Cell Count 5.49 10^6/uL (4.70-6.10); Red Cell Dist. Width 13.9 % (11.5-14.5); White Blood Cell Count 10.6 10^3/uL (4.8-10.8)
[2024-04-10 13:04] LABS: COVID-19 Antigen Negative (Negative)
[2024-04-10 13:18] LABS: ALT (SGPT) 20 U/L (0-50); AST (SGOT) 30 U/L (17-59); Albumin 3.7 g/dl (3.5-5.0); Alkaline Phosphatase 70 U/L (38-126); Blood Urea Nitrogen 15 mg/dl (9-20); Calcium 8.7 mg/dl (8.4-10.2); Carbon Dioxide 24 mmol/L (22-30); Chloride 103 mmol/L (98-107); Glucose 112 mg/dl (70-99); Potassium 4.8 mmol/L (3.5-5.1); Sodium 136 mmol/L (135-145); Total Bilirubin 0.9 mg/dl (0.2-1.3); Total Protein 7.1 g/dl (6.3-8.2); eGFR > 60.00
[2024-04-10 14:38] VITALS: BP 125/81
--- NOTE | 2024-04-10 17:13 | ED.GENMED ---
History of Present Illness
General
Chief Complaint: Breathing Problem
Source: patient
Exam Limitations: none
Time Seen by Provider: 04/10/24 16:56
History of Present Illness
History of Present Illness:
64yoM with a history of type 2 diabetes and asthma presenting for evaluation of multiple complaints. Patient reports an ongoing cough for the past 2 weeks with wheezing. He was feeling warm the past few days but has not checked his temperature.
He noticed some blood after blowing his nose but he denies any hemoptysis. He feels like it is hard for him to breathe. Additionally, he reports left lower back pain which radiates down the left leg which has been ongoing for about a month. He
also is having some left testicular discomfort and states it looks larger than the right testicle. Also, he reports right shoulder discomfort which is worse with movement. He is urinating frequently but denies any dysuria. He denies any chest
pain, abdominal pain, paresthesias, incontinence.
Past History
Past History
ED Past Medical History: Asthma, NIDDM and Other (PNA)
ED Past Surgical History: None
Social History
Tobacco: Non-smoker
Alcohol: None
Personal:
Living: with family
Phy Exam
General Physical Exam
General Presentation: well appearing and no apparent distress
General Skin: warm and dry
General Habitus: normal
General Mental: alert
ENT Exam
ENT Exam: normocephalic
Cardiovascular Exam
Cardiovascular Exam: regular rate/rhythm, no edema and no murmur
Pulmonary Exam
Pulmonary Exam: chest non tender, no rhonchi, generalized wheezing and other (Diffuse wheezing noted. Speaking in full sentences without difficulty. )
Genitourinary Exam Male
Exam Male: non circumcised and other (No testicular tenderness or swelling noted)
Neurological Exam
Neurological Exam: alert
Kiki Coma Scale
Eye Opening: Spontaneous
Verbal Response: Oriented
Motor Response: Obeys Commands
GCS Total Score: 15
Skin Exam
Skin Exam: normal color and warm/dry
Psychiatric Exam
Psychiatric Exam: normal mood/affect
Scores
Heart Failure Risk
Heart Failure Risk Score: Not Applicable
Course
Orders/Labs/Results
Orders:
Orders
04/10/24 12:34
CR Chest - 2 Views Urgent
Comment:
Reason For Exam: cough
04/10/24 12:39
COVID-19 Antigen Urgent
Source: Nasal Swab
Complete Blood Count/With Diff Urgent
Comprehensive Metabolic Panel Urgent
Influenza A+B Rapid Molecular Urgent
JEREMIE Source: Nasal Swab
Specimen Description:
04/10/24 17:11
Electrocardiogram (*1) Urgent
Reason for Study: Shortness of Breath
Ipratropium/Albuterol Sulfate [Duoneb] 3 ml INH R NOW STA
CR Lumbar Spine Comp Min 4 Vw* Urgent
Comment:
Reason For Exam: low back pain
CR Shoulder - Right Min 2 View Urgent
Comment:
Reason For Exam: atraumatic pain
Scrotum US [US Scrotum] Urgent
Comment:
Reason For Exam: L testicular pain
04/10/24 17:34
Troponin I Urgent
04/10/24 19:[address] Non Medication Order As Directed
Physician Order: ambulatory pulse ox
Above order entered?: Yes
04/10/24 19:33
Urinalysis Reflex To Culture Urgent
Date Specimen was Collected: 04/10/24
Time Specimen was Collected: 19:29
04/10/24 19:41
Dexamethasone Sod Phosphate [Decadron] 10 mg IV NOW STA
04/10/24 20:14
Admit/Transfer Patient As Directed
Co-Sign Provider:
Level of Care: Inpatient admission
Assign to:: Medical/Surgical
Physician / Group: melissa
Diagnosis: acute hypoxic respiratory failure
Reason for Hospitalization: acute hypoxic respiratory failure
asthma exacerbation
Expected length of stay greater than two midnights?: Yes
ELOS- Estimated Length of Stay in days: 3
I certify the patient meets the requirements for IP care: Yes
PRN Pain Medication Management As Directed
May give lesser potent ordered pain med per pt: Yes
preference::
Protocol:: Medication orders for pain may be administered in a
manner that supports deferring to patient preference
when the pt is:
- Requesting an ordered lesser potent pain medication.
Least to most potent pain medications are defined
as: acetaminophen < NSAID < tramadol < opioids
(morphine, oxycodone, hydromorphone).
- Requesting a lesser dose of the same medication IF
ORDERED.
- Requesting a less intrusive route of administration
if both routes are prescribed by the provider (PO <
IV).
04/10/24 20:15
Code Status As Directed
Resuscitation Status: Full Code
04/10/24 21:20
Acetaminophen [Tylenol] 650 mg PO Q4HPRN PRN
Dextrose 50%-Water [Dextrose 50% Syringe] 12.5 grams IV [id number] PRN
Glucagon [GlucaGen] 1 mg IM PRN PRN
Guaifenesin Solution [Robitussin] 200 mg PO Q4HPRN PRN
Ipratropium/Albuterol Sulfate [Duoneb] 3 ml INH R Q4HPRN PRN
04/10/24 21:20
Respiratory Culture/Gram Stain Routine
JEREMIE Source: Sputum
Specimen Description:
Activity As Directed
Activity Level: As Tolerated
Bedside Glucose Monitoring As Directed
Frequency: AC&HS
Additional Instructions:: Change to q6h if pt on TPN, tube feeding or not eating
Intake/ Output As Directed
Frequency: Per unit guidelines
Vital Signs As Directed
Frequency: Per unit guidelines
Copd Education [RESP] Routine
O2 Therapy [RESP] Routine
Titrate/Wean O2 to maintain O2 sat greater than (%): 95
Special Instructions: adjust, if necessary, to avoid hyperoxia in CO2 retainers.
Use High Flow O2 if necessary
DX Deep Vein Thrombosis Video Routine
04/11/24 04:00
Dexamethasone Sod Phosphate [Decadron] 4 mg IV Q8H
04/11/24 Breakfast
1800 calorie (15 carb) Diabetic
Glycohemoglobin (HgbA1c) IN AM
04/11/24 07:30
Insulin Aspart Corrective Low [Novolog Flexpen-Low Resistance] See Protocol SC AC
04/11/24 08:00
Ipratropium/Albuterol Sulfate [Duoneb] 3 ml INH R QID
METFORMIN HCl [Glucophage] 500 mg PO BID@0800,1700
04/11/24 18:00
Enoxaparin Sodium [Lovenox] 40 mg SC QPM
Abnormal Lab Results
04/10/24
12:39
Absolute Monos (auto) 1.4 H 10^3/uL
(0.1-0.6)
Monocytes % 13.4 H %
(1.7-9.3)
Creatinine 0.6 L mg/dL
(0.7-1.3)
Glucose 112 H mg/dl
(70-99)
04/10/24 12:39
04/10/24 12:39
Vital Signs
Initial and Last Documented VS:
Initial Vital Signs
Temp Pulse Resp BP Pulse Ox
98.2 F 77 20 136/92 97
04/10/24 12:30 04/10/24 12:30 04/10/24 12:30 04/10/24 12:30 04/10/24 12:30
Last Documented Vital Signs
Temp Pulse Resp BP Pulse Ox
98.7 F 96 18 130/87 95
04/10/24 21:26 04/10/24 21:26 04/10/24 21:26 04/10/24 21:26 04/10/24 21:26
MDM/Problems Addressed
Differential Diagnosis Includes:
64yoM here with multiple complaints. Main complaint is SOB and cough x 2 weeks. Also c/o low back pain, R shoulder pain, and L testicular pain. VSS. He is well-appearing in no acute distress. Diffuse wheezing noted on lung exam. Differential
diagnosis includes but is not limited to: Asthma exacerbation, bronchitis, viral illness, pneumonia
Initial ED plan: Basic lab work obtained in triage which is overall unremarkable. COVID/flu swab negative. Will check troponin, EKG, chest x-ray, right shoulder x-ray, lumbar spine x-ray, and scrotal ultrasound. DuoNeb and reassess.
*EKG
Interpreted by ED Provider?: Yes
EKG Intrepretation Date: 04/10/24
Heart Rate: 82
Rate: normal
Rhythm: sinus
[place]: normal axis
Interval: normal interval
QRS Pattern: normal QRS
Ischemia: no ischemia
*Critical Care Note
Total Time (30-74mins, 75-104mins- exclusive of procedures): Not Applicable
Update Note
Update Note:
Chest x-ray shows bilateral widespread interstitial opacities which could represent interstitial edema or pneumonitis superimposed on chronic interstitial changes. Troponin normal and EKG without ischemic changes. On reassessment, oxygen
saturation noted to be 90% while he is sitting on the stretcher. Ambulatory pulse ox obtained and he dropped to 86%. Wheezing resolved after DuoNeb but he now has bibasilar rales. IV Decadron ordered and he was admitted for further management.
ED Attending Note
-
Portions of this chart may have been created with voice recognition software.� Occasional wrong word or��sound alike� substitutions may have occurred due to the inherent limitations of voice recognition software.
Discharge Plan
Departure
Patient Disposition: Admit
Date of Disposition: 04/10/24
Time of Disposition: 19:44
Presentation/result/management discussed w/ accepting MD/DO: Hospitalist
Discharge Problem:
Acute hypoxic respiratory failure
Interventions
Interventions:
*Risk Screen - Suicide Last Done: 04/10/24 12:30
*General Assessment Last Done: 04/10/24 12:30
*Neglect/Abuse Screening Last Done: 04/10/24 12:30
*Nursing Disposition Last Done: 04/10/24 21:24
ED- Cardiac Assessment Last Done: 04/10/24 17:04
ED- Pulmonary Assessment Last Done: 04/10/24 17:04
Discharge Date and Time
Discharge Date/Time: 04/10/24 21:25
[2024-04-10] MEDS: DUONEB 3 ML INH (18:04)
[2024-04-10 18:07] LABS: Troponin I < 0.012 ng/ml
[2024-04-10 19:47] LABS: Urine Albumin Negative (Neg - Trace); Urine Bilirubin Negative (Negative); Urine Character Clear (Clear); Urine Color Yellow; Urine Glucose Negative (Negative); Urine Ketone Negative (Negative); Urine Leukocyte Negative (Negative); Urine Nitrite Negative (Negative); Urine Occult Blood Negative (Negative); Urine Specific Gravity 1.015 (<1.030); Urine Urobilinogen Negative (Neg - 1+)
[2024-04-10] MEDS: DECADRON 10 MG IV (19:48)
--- NOTE | 2024-04-10 19:48 | HPS.HSE ---
Family Physician
-
Family Physician: * NONE
Chief Complaint
-
sob
cough
History of Present Illness
64yoM with a history of type 2 diabetes and asthma presenting with cough with thick brownish sputum for past two weeks. patient stated sob which is worse with exertion. he felt feverish this weekend, but did not check his temperature. stated REESE.
patient was taking Mucinex with some relief in his symptoms. denied dizzy or syncope. denied chest pain. denied abdominal pain,n,v,d. stated left sided chronic back pain which is radiating to his left lower extremity. patient also complained for
scrotal pain. patient complained of generalized achiness. denied dysuria or hematuria. He noticed some blood after blowing his nose but he denies any hemoptysis.
upon arrival he is hypoxic requiring 2l of oxygen. admitting for further management. he received nebs and Decadron in ER. admitting for further management.
Medical History
Past Medical History
Past Medical History: Reports Other
Additional Past Medical History:
asthma
pulmonary fibrosis
DM
Past Surgical History: Reports None
Social History
Tobacco: Non-smoker
Alcohol: None
Drug: None
Personal:
Living: With Family
Family History
Family History: Not pertinent
Allergies / Home Medications
Allergies reflects when Allergies were last updated in [employer].
Home Medications with original date entered in [employer]
Allergy/Medication List:
Allergies
Allergy/AdvReac Type Severity Reaction Status Date / Time
No Known Allergies Allergy Verified 12/20/23 13:07
Home Medications
metformin 500 mg tablet 500 mg PO BID@0800,1700 Diabetes 06/02/23
albuterol sulfate 90 mcg/actuation aerosol inhaler 2 puff inhalation R Q6HPRN PRN shortness of breath or wheezing 04/10/24
fluticasone 250 mcg-salmeterol 50 mcg/dose blistr powdr for inhalation 1 inh inhalation R DAILY 04/10/24
ibuprofen 200 mg tablet 400 mg PO Q8HPRN PRN mild pain 04/10/24
Review of Systems
-
Constitutional: Reports Fever and Fatigue
EENT: Reports Runny Nose
Respiratory: Reports No Symptoms, Cough and Trouble Breathing
Cardiac: Reports No Symptoms
Abdomen/GI: Reports No Symptoms
: Reports Other (scrotal pain)
Musculoskeletal: Reports Other (shoulder pain, back pain radiating to left LE)
Skin: Reports No Symptoms
Neurological: Reports No Symptoms
Endocrine: Reports No Symptoms
Hematologic/Lymphatic: Reports No Symptoms
Psych: Reports No Symptoms
Physical Exam
Vital Signs
Vital Signs
Temp Pulse Resp BP Pulse Ox
97.8 F 79 18 125/81 95
04/10/24 14:38 04/10/24 14:38 04/10/24 14:38 04/10/24 14:38 04/10/24 14:38
Physical Exam
General: Well Developed, Well Nourished and No Apparent Distress
HEENT: NormoCephalic, Moist mucous membranes and Atraumatic
Respiratory: Clear
Cardiac: S1/S2 and Regular Rhythm; No Murmur or Rub
GI: Soft, Non Tender, Non Distended and Normal Bowel Sounds; No Organomegaly
Rectal: Deferred by Provider
Musculoskeletal: No Clubbing, No Cyanosis and No Edema
Skin: No Rash
Neuro: AO x 3 and Nonfocal/grossly intact
Psych: Calm
Laboratory Results
-
04/10/24 12:39
04/10/24 12:39
Laboratory Results
Total Bilirubin 0.9 mg/dl (0.2-1.3) 04/10/24 12:39
AST 30 U/L (17-59) 04/10/24 12:39
ALT 20 U/L (0-50) 04/10/24 12:39
Alkaline Phosphatase 70 U/L (38-126) 04/10/24 12:39
Troponin I < 0.012 ng/ml 04/10/24 17:34
Data Reviewed
-
Diagnostic Radiology: Report Reviewed by me
Lab Data: Labs Reviewed by me
Impression/Plan
-
#acute hypoxic respiratory failure cough/sob likely from bronchitis
#asthma exacerbation.
-chest x ray with the impression of Redemonstration of bilateral widespread interstitial opacities, perhaps slightly increased. Findings could represent interstitial edema/pneumonitis superimposed upon some chronic interstitial changes.
-iv Decadron
-covid negative
-negative influenza A and B
-Duonebs continued
-continue supplemental oxygen to keep sat >92
-wean as tolerated
#back pain radiating to left LE
#shoulder pain
-lumbar spine x ray with the impression Degenerative changes.
-shoulder x ray with the impression of Degenerative changes.Questionable small soft tissue calcification (versus degenerative spurring) adjacent to the head of the proximal right humerus for which calcific tendinitis and/or bursitis is possible.
#scrotum pain
-US of scrotum with the impression of No evidence of testicular torsion.Tiny testicular calcifications bilaterally, left slightly greater in number than right. Cannot exclude testicular microlithiasis.Small bilateral epididymal head cysts.
#type 2 diabetes
-Continue metformin
-Insulin sliding scale
Full code
DVT prophylaxis�lovenox
--- NOTE | 2024-04-10 20:18 | W.PN.UPDATE ---
Update Note
Progress Note Update
This is an addendum to the H&P written by Nelia Lemons on 04/10/2024. 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
64-year-old male past medical history of diabetes, asthma presenting for multiple complaints. He has had ongoing cough for the past 2 weeks with wheezing. He has been feeling warm for the past few days but has not checked his temperature. He
noticed some blood after blowing his nose but denies coughing up any blood. He is having trouble breathing. He reports left lower back pain which radiates down his left leg ongoing for a month.
He is also having left testicular comfort and states it looks larger than the right testicle.
He also reports right shoulder discomfort worse with movement.
He is urinating frequently but denies any discomfort with urination. Denies chest pain or abdominal pain numbness or tingling.
# Possible interstitial pneumonia/pneumonitis
-COVID and influenza negative
-DuoNebs every 6 hours
-Dexamethasone 4 mg every 12
Epistaxis
-Only with blowing nose in the mornings
-Outpatient follow-up with ENT
Acute lower back pain with left-sided radiculopathy secondary to arthritis
-Lumbar x-ray shows degenerative changes
-Continue ibuprofen
Right shoulder pain secondary to arthritis
-Shoulder x-ray without any notable findings
Left testicular pain
-Testicular ultrasound negative
-Pain has resolved now
Asthma
Type 2 diabetes
-Hold metformin
[2024-04-10 21:26] VITALS: BP 130/87
[2024-04-10 21:27] VITALS: BMI 28.7
[2024-04-10 21:44] LABS: Glucose - Point of Care 124 mg/dl (70-99)
--- NOTE | 2024-04-10 22:00 | PTCARENOTE ---
Patient received from ED via stretcher and ambulated to room. O2 at 2lpm nasal cannula. He was oriented to room and surroundings. Reviewed plan of care. See nursing assessment for physical findings.
[2024-04-10] MEDS: TYLENOL 650 MG PO (22:30)
[2024-04-10 23:30] VITALS: PULSE 2
[2024-04-10 23:55] VITALS: BP 142/94
[2024-04-11] MEDS: DECADRON 4 MG IV ×3 (03:58→21:30)
[2024-04-11] MEDS: FLUSH (NSS) 2 FLUSH IV (04:00)
[2024-04-11 07:08] VITALS: BP 111/76
[2024-04-11 07:35] LABS: NT-proBNP 94.7 pg/ml
[2024-04-11] MEDS: DUONEB 3 ML INH (07:42)
[2024-04-11 07:43] LABS: Procalcitonin 0.07 ng/ml (0.0-0.25)
[2024-04-11 08:17] LABS: Glucose - Point of Care 122 mg/dl (70-99)
[2024-04-11] MEDS: NOVOLOG FLEXPEN-LOW RESISTANCE SC ×2 (08:35→12:04)
[2024-04-11] MEDS: GLUCOPHAGE 500 MG PO ×2 (08:36→17:13)
--- NOTE | 2024-04-11 08:48 | W.PN.HOSP.TC ---
Today's Communication/Plan
-
Adjust DM treatment
Change Neb to PRN, resume inhaler
consult pulmonary
Assessment / Plan
Assessment / Plan
Physical Exam
General: No Apparent Distress
HEENT: Normocephalic, Moist mucous membranes and Atraumatic
Respiratory: crackles, inspiratory mostly
Cardiac: S1/S2
GI: Soft, Non Tender, Non Distended and Normal Bowel Sounds
Rectal: No bleeding
Musculoskeletal: No Clubbing, No Cyanosis and No Edema. Limited movement right shoulder.
Skin: No Rash
Neuro: AO x 3 and Nonfocal/grossly intact
Psych: Calm
# Acute respiratory distress due to underlying pulmonary fibrosis flare-up/ Acute exacerbation of idiopathic pulmonary fibrosis
He follows with pulmonary at [place]. Takes inhalers at home, his last visit to lung doctor ( a month ago- does not know the name of his lung doctor) . He was hospitalized at [facility].
-COVID and influenza negative
- Change DuoNeb to PRN, c/w inhaler.
-Dexamethasone 4 mg every 12
Consult pulmonary.
Epistaxis
resolved
Acute lower back pain with left-sided radiculopathy secondary to arthritis
-Lumbar x-ray shows degenerative changes
Right shoulder pain secondary to rotator cuff tear, will need OP ortho follow up
-Shoulder x-ray without any notable findings
Left testicular pain
-Testicular ultrasound negative
- no complaints
Type 2 diabetes
Expect high blood glucose with steroid, will add ISS, Lantus
- Resume metformin
Total time spent to see the patient, review data and lab results, examine the patient, discuss treatment plan with patient, nursing staff around 55 minutes
Anticipated Discharge: 24 - 48 hours
Subjective/Interval History
-
Date of Service: April 11, 2024
No chest pain
No sob
No fevers
He feels better
Objective Data
-
Vital Signs:
Vital Signs
Temp Pulse Resp BP Pulse Ox
98 F 75 18 142/94 95
04/10/24 23:55 04/11/24 07:46 04/11/24 07:46 04/10/24 23:55 04/11/24 07:46
I&O
04/10/24 04/11/24 04/12/24
06:59 06:59 06:59
Intake Total 960 / 960
Balance 960 / 960
[2024-04-11 08:58] LABS: Glycohemoglobin (HgbA1c) 6.1 % (4.0-5.6)
--- NOTE | 2024-04-11 10:59 | CM ---
Pt seen bedside. Initial assessment completed. Admitted for SOB and cough.
Pt reports that he lives w/ spouse in a 2STH- 4 steps to enter. Pt states he is independent w/ ambulating. Pt has additional shower chair and grab bars in the bathroom for support. Pt currently on 2L O2 and receiving neb treatments (now PRN). Pt
does not use home O2 or nebulizers
Pt denies SNF/VN/PT hx.
Address, point of contact and insurance verified
PCP: Dr. Ambrocio @ [facility]
Pharmacy: [facility]
Pt currently has MA pending
Plan: Home; no needs anticipated
[2024-04-11 12:03] LABS: Glucose - Point of Care 138 mg/dl (70-99)
--- NOTE | 2024-04-11 12:12 | CON.PUL ---
Consultation
Consultation Request
Date/Time Consultation Requested: 04/11/2024641
Date/Time Consultation Performed: 04/11/2024909
Requesting Provider: Dr. Hood
Performing Provider: Dr. Damian
Reason for Consultation: SOB
Medical History
-
Chief Complaint: SOB/cough
History of Present Illness:
64-year-old male with a past medical history of DM type II, asthma and pulmonary fibrosis who presented with SOB + cough. Symptoms started approximately 10 days ago. Also noticed some blood in his mucus from his nose. He felt feverish over the
past weekend but this was subjective. Was taking Mucinex with some relief. Has not had chest pain. Also endorsed scrotal pain with generalized achiness. Initially in the ER he was afebrile to 98.2 �F, pulse rate 77, breathing at 20 breaths
minute, BP 136/92 and saturating 97% on room air. Initially in the ER, Hb 16.8, absolute eosinophils: 300, troponin negative at <0.012, urinalysis negative for signs UTI and COVID antigen also negative. CXR shows bilateral widespread interstitial
opacities perhaps slightly increased compared to prior CXR from 11/02/2023. He was given Decadron and DuoNebs in the ER, and admitted to Med/Surg. Pulmonary service now consulted for additional management/recommendations.
Pt was seen today at bedside, and he was in NAD on room air, breathing comfortably. He says his SOB is better. He has a mild cough with some yellow phlegm. He normally goes to [place] for follow up with Pulmonary. He currently denies
chest pain, abd pain, N/V/f/c.
PMHx: DM type II, asthma, history of pulmonary fibrosis
PSHx: Non-contributory
Past Medical History
Past Medical History: Other (Above as per HPI)
Past Surgical History: Other (Above as per HPI)
Social History
Tobacco: Non-smoker
Alcohol: None
Drug: None
Personal:
Living: With Family
Family History
Family History: Reviewed & Not Pertinent
Allergies / Home Medications
Allergies
Allergy/AdvReac Type Severity Reaction Status Date / Time
No Known Allergies Allergy Verified 12/20/23 13:07
Home Medications
�Medication �Instructions �Recorded �Confirmed �Last Taken �Type
metformin 500 mg tablet 500 mg PO BID@0800,1700 Diabetes 06/02/23 04/10/24 06/01/23 History
albuterol sulfate 90 mcg/actuation 2 puff inhalation R Q6HPRN PRN 04/10/24 04/10/24 Unknown History
aerosol inhaler shortness of breath or wheezing
fluticasone 250 mcg-salmeterol 50 1 inh inhalation R DAILY 04/10/24 04/10/24 Unknown History
mcg/dose blistr powdr for
inhalation
ibuprofen 200 mg tablet 400 mg PO Q8HPRN PRN mild pain 04/10/24 04/10/24 Unknown History
Review of Systems
-
History Source: Patient
All other systems: Negative unless noted
Vitals / Labs / Diagnostic Testing
Vital Signs
Temp Pulse Resp BP Pulse Ox
98.3 F 75 18 111/76 95
04/11/24 07:08 04/11/24 07:46 04/11/24 07:46 04/11/24 07:08 04/11/24 07:46
Lab Data
04/10/24 12:39
04/10/24 12:39
Microbiology
04/10/24 12:39 Nasal Swab Influenza Types A & B ([facility]) - Final
Negative for Influenza A & B, NAAT
Negative results must be combined with clinical observations
and patient history.
Nucleic Acid Amplification test (NAAT)performed on the
[employer] platform.
Diagnostic Testing:
Physical Exam
-
HEENT: Normocephalic and Anicteric
Cardiovascular: S1/S2, Rub (negative) and Peripheral Edema (negative)
Respiratory: Wheeze (negative), Rales (bilaterally mainly in the bases), Rhonchi (negative) and Accessory Resp Muscle Use (negative)
GI: Soft, Non Distended, Non Tender and Normal Bowel Sounds
Neurology: AO x 3 and Tremors (negative)
Skin: Warm and Dry
General: Respiratory Distress (negative), Comfortable, Fever (negative) and Chills (negative)
Assessment
-
Assessment: 64-year-old male with a past medical history of DM type II, asthma and pulmonary fibrosis who presented with SOB + cough. Symptoms started approximately 10 days ago. Also noticed some blood in his mucus from his nose. He felt
feverish over the past weekend but this was subjective. Was taking Mucinex with some relief. Has not had chest pain. Also endorsed scrotal pain with generalized achiness. Initially in the ER he was afebrile to 98.2 �F, pulse rate 77, breathing
at 20 breaths minute, BP 136/92 and saturating 97% on room air. Initially in the ER, Hb 16.8, absolute eosinophils: 300, troponin negative at <0.012, urinalysis negative for signs UTI and COVID antigen also negative. CXR shows bilateral widespread
interstitial opacities perhaps slightly increased compared to prior CXR from 11/02/2023. He was given Decadron and DuoNebs in the ER, and admitted to Med/Surg. Pulmonary service now consulted for additional management/recommendations.
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
Impression:
#Acute IPF exacerbation in setting of asthma
#Acute respiratory failure with hypoxia requiring supplemental oxygen due to above
#Moderate persistent asthma on Advair 250mcg at home
#Pulmonary fibrosis with subpleural reticular opacities with apical basilar gradient, traction bronchiectasis and extensive honeycombing predominantly in the left lower lobe - this is UIP pattern fibrosis
#Scrotal pain/left testicular pain with negative US with no evidence of testicular torsion; cannot exclude testicular microlithiasis
Plan:
- Symptoms are concerning for an ILD flare, as there is slightly worsened opacification in the right hemithorax on current CXR compared to prior CXR from 11/02/2023
- Continue with systemic steroids and wean as he clinically improves - currently on Decadron 4 mg IV q8hr
- Maintain euglycemia while on high-dose steroids with goal BG >100 and <180
- Start pantoprazole given his ILD
- Maintain SpO2 >90-94%
- Uses Advair at home and this should be continued while he is hospitalized with prn DuoNebs
- Patient has normal WBC, afebrile and nontoxic-appearing
- No need for antibiotics at this time
- [facility] and [facility]
- Pain control
- Incentive spirometer encouraged q1hr while awake
- Replete electrolytes with K>4, Mg>2
- Maintain euglycemia with goal BG >100 and <180
- prn nebulized bronchodilators - not currently bronchospastic
- Obtain medical records of most recent outpatient pulmonary progress note, last CT chest, PFTs and any additional lab testing that is pertinent to his ILD
- DVT ppx: LMWH
Pulmonary service will continue to follow along. He follows with pulmonology at [facility] and should continue following with them once discharged.
Data:
CXR 04/10/2024: Redemonstration of bilateral widespread interstitial opacities, perhaps slightly increased. Findings could represent interstitial edema/pneumonitis superimposed upon some chronic interstitial changes.
Total time spent today was 59 minutes for this encounter. Time includes reviewing laboratory test/imaging results, reviewing pertinent medical records, obtaining and reviewing medical history, performing an appropriate exam, ordering medications,
tests and procedures. Time also includes documentation of this encounter, coordinating patient care and communicating with other healthcare professionals. Total time does not include separately billed tests performed on this date of service.
[2024-04-11 15:07] VITALS: BP 134/84
[2024-04-11 16:50] LABS: Glucose - Point of Care 164 mg/dl (70-99)
[2024-04-11] MEDS: NOVOLOG FLEXPEN-LOW RESISTANCE 1 UNITS SC (17:09)
[2024-04-11] MEDS: LOVENOX 40 MG SC (17:13)
[2024-04-11] MEDS: TYLENOL 650 MG PO (17:18)
[2024-04-11] MEDS: ADVAIR HFA 230/21 MCG INHALER 2 PUFF INH (19:41)
[2024-04-11 21:27] LABS: Glucose - Point of Care 121 mg/dl (70-99)
[2024-04-11] MEDS: LANTUS 0.1 UNITS SC (21:31)
[2024-04-11] MEDS: ROBITUSSIN 200 MG PO (21:36)
[2024-04-11 23:30] VITALS: BP 116/82
[2024-04-12] MEDS: DECADRON 4 MG IV ×2 (04:11→12:42)
[2024-04-12 07:29] VITALS: BP 126/83
[2024-04-12 07:56] LABS: Glucose - Point of Care 125 mg/dl (70-99)
[2024-04-12] MEDS: ADVAIR HFA 230/21 MCG INHALER 2 PUFF INH (08:06)
[2024-04-12] MEDS: GLUCOPHAGE 500 MG PO (08:42)
[2024-04-12] MEDS: NOVOLOG FLEXPEN-LOW RESISTANCE SC ×2 (08:42→15:49)
[2024-04-12] MEDS: PROTONIX 40 MG PO (08:42)
--- NOTE | 2024-04-12 08:53 | W.PN.PUL3 ---
Today's Communication / Plan
-
DC home on prednisone taper starting at 50mg and reduce by 10mg every 4th day until off
Resume Advair + as needed on albuterol MDI upon discharge
Up OOB as tolerated
Antitussants prn
Patient is doing well and is ready for discharge home. He follows with pulmonology at [facility] and should continue following with them once discharged. No additional recommendations at this time. Pulmonary service will now sign
off. Please reconsult if there are any additional questions/concerns, or if patient's respiratory status deteriorates.
Assessment
-
Assessment: 64-year-old male with a past medical history of DM type II, asthma and pulmonary fibrosis who presented with SOB + cough. Symptoms started approximately 10 days ago. Also noticed some blood in his mucus from his nose. He felt
feverish over the past weekend but this was subjective. Was taking Mucinex with some relief. Has not had chest pain. Also endorsed scrotal pain with generalized achiness. Initially in the ER he was afebrile to 98.2 �F, pulse rate 77, breathing
at 20 breaths minute, BP 136/92 and saturating 97% on room air. Initially in the ER, Hb 16.8, absolute eosinophils: 300, troponin negative at <0.012, urinalysis negative for signs UTI and COVID antigen also negative. CXR shows bilateral widespread
interstitial opacities perhaps slightly increased compared to prior CXR from 11/02/2023. He was given Decadron and DuoNebs in the ER, and admitted to Med/Surg. Pulmonary service now consulted for additional management/recommendations.
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
Impression:
#Acute IPF exacerbation in setting of asthma
#Acute respiratory failure with hypoxia requiring supplemental oxygen due to above - now on room air
#Moderate persistent asthma on Advair 250mcg at home
#Pulmonary fibrosis with subpleural reticular opacities with apical basilar gradient, traction bronchiectasis and extensive honeycombing predominantly in the left lower lobe - this is UIP pattern fibrosis
#Scrotal pain/left testicular pain with negative US with no evidence of testicular torsion; cannot exclude testicular microlithiasis
Plan:
- Symptoms are concerning for an ILD flare, as there is slightly worsened opacification in the right hemithorax on current CXR compared to prior CXR from 11/02/2023
- Continue with systemic steroids and wean as he clinically improves - currently on Decadron 4 mg IV q8hr --> DC home on prednisone taper starting at 50mg and reduce by 10mg every 4th day until off
- Maintain euglycemia while on high-dose steroids with goal BG >100 and <180
- Continue pantoprazole given his ILD, and he should be sent home with this as well
- Maintain SpO2 >90-94%
- Uses Advair at home and this should be continued while he is hospitalized with prn DuoNebs - resume Advair and as needed albuterol MDI upon discharge
- Patient has normal WBC, afebrile and nontoxic-appearing
- No need for antibiotics at this time
- Sputum culture collected on 04/10/2024 and shows NGTD
- Pain control
- Incentive spirometer encouraged q1hr while awake
- Replete electrolytes with K>4, Mg>2
- Maintain euglycemia with goal BG >100 and <180
- prn nebulized bronchodilators - not currently bronchospastic
- Obtain medical records of most recent outpatient pulmonary progress note, last CT chest, PFTs and any additional lab testing that is pertinent to his ILD
- DVT ppx: LMWH
Patient is doing well and is ready for discharge home. He follows with pulmonology at [facility] and should continue following with them once discharged. No additional recommendations at this time. Pulmonary service will now sign
off. Thank you for allowing us to be involved in the care of this patient. Please reconsult if there are any additional questions/concerns, or if patient's respiratory status deteriorates.
Data:
CXR 04/10/2024: Redemonstration of bilateral widespread interstitial opacities, perhaps slightly increased. Findings could represent interstitial edema/pneumonitis superimposed upon some chronic interstitial changes.
Total time spent today was 36 minutes for this encounter. Time includes reviewing laboratory test/imaging results, reviewing pertinent medical records, obtaining and reviewing medical history, performing an appropriate exam, ordering medications,
tests and procedures. Time also includes documentation of this encounter, coordinating patient care and communicating with other healthcare professionals. Total time does not include separately billed tests performed on this date of service.
Subjective Data
-
Date of Service:
Date of Service: April 12, 2024
Chief Complaint: Pulmonary Follow Up
Subjective:
Patient was seen and evaluated today at bedside. Shortness of breath has improved, and he is on room air breathing comfortably. Still with a dry cough but it is not bothersome. He currently denies REESE, chest pain, abdominal pain, nausea, fevers or
chills.
Review of Systems
General: Other (Negative unless mentioned above)
Objective Data
Data Reviewed
Vital Signs / I&O / Oxygen:
Vital Signs
Temp Pulse Resp BP Pulse Ox
98 F 74 16 126/83 94
04/12/24 07:29 04/12/24 08:08 04/12/24 08:08 04/12/24 07:29 04/12/24 08:52
Intake and Output
04/11/24 04/12/24 04/13/24
06:59 06:59 06:59
Intake Total 960 / 960 1140 / 1140
Balance 960 / 960 1140 / 1140
SaO2 94
Nasal Cannula flow liters per 2
minute
Physical Exam
General: Respiratory Distress (negative), Comfortable, Chills (negative) and Sweats (negative)
HEENT: Normocephalic and Anicteric
Cardiovascular: S1-S2 and Peripheral Edema (negative)
Respiratory: Wheeze (negative), Crackles (Bilaterally), Rhonchi (negative), Non-Labored Respirations and Stridor (negative)
GI: Soft, Non Distended, Non Tender and Normal Bowel Sounds
Neurology: AO x 3 and Tremors (negative)
Skin: Warm, Dry, Cyanosis (negative) and Jaundice (negative)
Labs/Micro/Reports
Lab Data
04/10/24 12:39
04/10/24 12:39
Microbiology
04/10/24 21:20 Sputum Gram Stain - Preliminary
04/10/24 12:39 Nasal Swab Influenza Types A & B ([facility]) - Final
Negative for Influenza A & B, NAAT
Negative results must be combined with clinical observations
and patient history.
Nucleic Acid Amplification test (NAAT)performed on the
[employer] platform.
--- NOTE | 2024-04-12 11:56 | W.PN.HOSP.TC ---
Today's Communication/Plan
-
Home O2 eval
DC planning
Assessment / Plan
Assessment / Plan
# Acute respiratory distress due to underlying pulmonary fibrosis flare-up/ Acute exacerbation of idiopathic pulmonary fibrosis
He follows with pulmonary at [facility]. Takes inhalers at home, his last visit to lung doctor ( a month ago- does not know the name of his lung doctor) . He was hospitalized at [facility].
-COVID and influenza negative
- Change DuoNeb to PRN, c/w inhaler.
- cw Dexamethasone IV per Pulm
-Pulmonary following
- Patient feeling improved with regards to breathing and cough.
-Check oxygenation on room air
Epistaxis
resolved
Acute lower back pain with left-sided radiculopathy secondary to arthritis
-Lumbar x-ray shows degenerative changes
Right shoulder pain secondary to rotator cuff tear, will need OP ortho follow up
-Shoulder x-ray without any notable findings
Left testicular pain
-Testicular ultrasound negative
- no complaints now
Type 2 diabetes
Expect high blood glucose with steroid, cw add ISS, Lantus
- cw metformin
- HbA1c 6.1
Check oxygen on room air
If okay from pulmonary standpoint will consider discharge today.
Anticipated Discharge: Today
Subjective/Interval History
-
Date of Service: April 12, 2024
Feeling improved with his breathing.
Cough has improved as well.
Objective Data
-
Vital Signs:
Vital Signs
Temp Pulse Resp BP Pulse Ox
98 F 74 16 126/83 94
04/12/24 07:29 04/12/24 08:08 04/12/24 08:08 04/12/24 07:29 04/12/24 08:52
I&O
04/11/24 04/12/24 04/13/24
06:59 06:59 06:59
Intake Total 960 / 960 1140 / 1140
Balance 960 / 960 1140 / 1140
Review of Systems
-
Constitutional: Denies Fever or Chills
Cardiac: Denies Chest Pain
Abdomen/GI: Denies Abdominal Pain, Nausea or Vomiting
Neuro: Denies Dizzy
Physical Exam
-
General: Comfortable
HEENT: Moist Mucous Membranes
Respiratory: Crackles (focal in right lower zone) and Non Labored Respirations; Negative Wheezes or Accessory Resp Muscle Use
Cardiac: Regular Rhythm and S1/S2; Negative Tachycardic
GI: Soft
Neuro: AO x 3
Psych: Calm
[2024-04-12 12:16] LABS: Glucose - Point of Care 182 mg/dl (70-99)
--- NOTE | 2024-04-12 15:24 | CM ---
Chart reviewed, pt poss for d/c today
Home O2 assessment completed. No home O2 needs
Spouse will transport at d/c
No CM needs identified at this time
Plan: Home; no needs
[2024-04-12 15:40] VITALS: BP 134/82
[2024-04-12 16:33] LABS: Glucose - Point of Care 118 mg/dl (70-99)
[2024-04-12] MEDS: ROBITUSSIN 200 MG PO (16:45)
[2024-04-12] MEDS: AFLURIA (36 mos+) 2024-2025 FORMULA 0.5 ML IM (16:45)
[2024-04-12 19:13] LABS: Hepatitis C Antibody Negative (Negative)
--- NOTE | 2024-04-13 14:53 | W.DCSUMMARY ---
Discharge Summary
Discharge Data
Date of Admission: 04/10/24
Date of Discharge: 04/13/24
-
Pending Results: No
Hospital Course
Primary diagnosis:
Acute idiopathic pulmonary fibrosis exacerbation
Acute hypoxic respiratory failure which is
Moderate persistent asthma
Secondary diagnosis:
Type 2 diabetes mellitus
Hospital course:
64-year-old gentleman with a history of asthma and IPF presented with ongoing cough for 2 weeks with wheezing. He was afebrile but hypoxic requiring 2 L of oxygen. He was noted to be bronchospastic. White count was normal. Creatinine was normal.
Chest x-ray showed Redemonstration of bilateral widespread interstitial opacities, perhaps slightly increased. Findings could represent interstitial edema/pneumonitis superimposed upon some chronic interstitial changes. Influenza and COVID swabs
were negative. Was seen by pulmonary who felt possible IPF exacerbation was put on steroids along with nebulizers.
He had a clinical improvement in his symptomatology as well as resolved hypoxia. Once he was clinically better he was discharged home on steroid taper. He had epistaxis which resolved. He was complaining of right shoulder pain and there was
rotator cuff possible calcific tendinitis and/or bursitis. Advised to follow-up with orthopedics as outpatient.
His hemoglobin A1c was 6.1 and he was maintained on metformin.
Consultants on board:
P[facility]
Discharge Plan
-
Patient Disposition: Home (Routine Discharge)
Discharge Diagnosis/Procedures: Suspected ILD flare
Diet: Diabetic, Carb Controlled
Activity: As tolerated
Driving Restrictions: As prior to admission
Bathing Restrictions: None
Referrals:
NONE,* [Family Provider] - in less than 1 week
Prescriptions:
New
Robitussin Cough-Chest Emmett DM 10-200 mg capsule
2 tab-cap PO Q6H PRN (Reason: Cough) Qty: 1 0RF
Rx Instructions:
buy over the counter
prednisone 10 mg tablet
10 mg PO DIRECTED Qty: 30 0RF
Rx Instructions:
40mg daily starting tomorrow and taper by 10mg every 2 days and stop
Continued
metformin 500 mg Tablet
500 mg PO BID@0800,1700
albuterol sulfate 90 mcg/actuation HFA aerosol inhaler
2 puff inhalation R Q6HPRN PRN (Reason: shortness of breath or wheezing)
fluticasone propion-salmeterol 250-50 mcg/dose Blister With Device
1 inh INHALATION R DAILY
ibuprofen 200 mg Tablet
400 mg PO Q8HPRN PRN (Reason: mild pain)
Discharge Orders:
Discharge Patient (As Directed); Ordered 04/12/24
Ordered By: Lamonte Gunn
Discharge Date and Time
Discharge Date/Time: 04/12/24 17:17
Print Language: GREEK
== END 2024-04-12 17:17 | disposition home or self-care (01) | DRG 189 ==
LOC: 4 EAST ACU 20:25
PROVIDERS: Emergency Medicine; Internal Medicine; Physician Assistant; Registered Nurse; ADMITTING PHYSICIAN Hospitalist; ATTENDING PHYSICIAN Internal Medicine; CONSULT PHYSICIAN Internal Medicine Critical Care Medicine; EMERGENCY PHYSICIAN Emergency Medicine
PROC: 3E02340 Introduction of Influenza Vaccine into Muscle, Percutaneous Approach (ICD-10-PCS; 2024-04-12)
DX: J96.01 Acute respiratory failure with hypoxia (principal); J84.112 Idiopathic pulmonary fibrosis; N50.812 Left testicular pain; E11.9 Type 2 diabetes mellitus without complications; R04.0 Epistaxis; M51.16 Intervertebral disc disorders with radiculopathy, lumbar region; M19.011 Primary osteoarthritis, right shoulder; J45.40 Moderate persistent asthma, uncomplicated; Z23 Encounter for immunization; Z79.84 Long term (current) use of oral hypoglycemic drugs; Z79.51 Long term (current) use of inhaled steroids; Z11.52 Encounter for screening for COVID-19
CPT/HCPCS: 71046; 72110; 73030; 76870; 80053; 81003; 82962; 83036; 83880; 84145; 84484; 85025; 86803; 87070; 87147; 87205; 87502; 87811; 90686; 93005; 93976; 94640; 96374; 99285; G0008